=== PATIENT | male | born 1950 | race Caucasian/White ===

== ENCOUNTER 2025-01-17 11:06 | Emergency (ER) | payer OTHER, SELFPAY ==
[2025-01-17 11:07] VITALS: BMI 21.7
[2025-01-17 11:09] VITALS: BP 158/82
--- NOTE | 2025-01-17 11:18 | CON.NEURO4 ---
Addendum entered and electronically signed by Pk Vigil MD 01/17/25 21:07:
According to the patient's and son, the patient had returned to his baseline while he was in the ER.
I had a detailed discussion with the patient's and son regarding the assessment and the management plan, and they verbalized understanding of our discussion. The patient will follow-up with his neurologist as an outpatient.
Addendum entered and electronically signed by Pk Vigil MD 01/17/25 21:03:
The patient was seen and examined today along with the nurse practitioner Collette Bush. I generally agree with the assessment and the management plan of the nurse practitioner Collette Bush. Given below is my addendum.
The patient is a 74 years old male with history of Lewy body dementia. Who presented to the emergency department for concern for stroke-like symptoms. The patient was accompanied by his and son who were present at the bedside to provide the
history. According to his the patient went to sleep at around 10 PM last night and she went to wake him up this morning at around 10:15 AM, and she noticed that the patient was not able to speak. On arrival in the ED, the patient's speech
gradually improved and he became more alert. Also in the ER the patient started to move his upper and lower extremities and was found to have antigravity strength in his extremities. He started to follow verbal commands and also was able to tell
his name and his age. His speech was slightly dysarthric and the sensations were grossly intact. There was no limb ataxia seen. The patient appear has rigidity in his extremities. The patient is being followed by an outside neurologist for Lewy
body dementia.
The patient had a significant improvement in his mental status in the ER and according to his and son, the patient's mental status had improved back to his baseline. The patient does not appear to have had a stroke. The etiology of the
patient's clinical presentation could be related to toxic metabolic encephalopathy. He was found to have UTI and he was started on antibiotic.
Discussed with the ER physician Dr. Arti Hoyt.
Original Note:
Consultation - Neurology 4
-
CONSULTING PHYSICIAN: Pk Vigil MD
REFERRING PHYSICIAN: ER/Dr. Hoyt
DICTATED BY: JV Domínguez
DATE/TIME OF REQUEST: 01/17/25
DATE/TIME OF CONSULTATION: 01/17/25
Reason for Consultation: Stroke Alert
History of Present Illness:
This is a 74-year-old male who has presented to the hospital with report of aphasia. Patient was previously followed by our outpatient Neurology service for memory issues, hallucinations, and dizziness. He was subsequently diagnosed with Lewey body
dementia with parkinsonism by the [facility] about three years ago and currently follows with them as an outpatient.
From previous outpatient encounter by Dr. Hodge on 02/24/2022:
'This is a 70 years old gentleman with history of hypertension and hyperlipidemia presented with dizziness for evaluation. Patient was accompanied with his at today's visit and she helped his recollection.�������Patient reported that He had a
dizziness event a couple times over the past few weeks. It happened one time when he bended over his body with housework. It was assoicated with left sided numbness but resolved after he went to ER. He also had CT head and it did not show acute
intracranial abnormalities. He reported that he felt severe dizziness and almost passed out. He was DC home after sympotms impoved.�������Patient had another event when he was anxious in stress. He reported lightheaded and symptoms improved after
drinking water and rest. He denies dizziness event is associated with numbness or weakness of his body. He denies difficulty with vision or speech during the events. He reported worsening of anxiety recently. He has been taking fluoxetine 10 mg once
daily from primary physician.�������Since last visit, pt completed work up for syncope and dizziness with Brain MRI and US ICA in 01/2021. TSH was also check in 01/2021 and unremarkable. He reported that no event of syncope recently and dizziness
also resolved.�������
>> Right-Handed�������Began (prior to this first evaluation):�������
10/2021������
�4 years ago (2017) patient began to have violent sleep, stopped since 2019������
�3 ED visits since last evaluation in this office�������
2 episodes were dizziness������
October 19, 2021 1 episode of psychosis leading to Crisis evaluation�������
Another episode of visual hallucination�������
No problems with memory noted�������
Anxiety and driving around the block.'
Patient's spouse at bedside reports that yesterday they flew home from a trip to [place] and stayed up later than usual. They went to bed at 2230 and the patient was at his baseline at that point. This morning (01/17/25), she reports that
she saw him open his eyes around 0830, but he kept going back to sleep. Around 1015 she decided he needed to get up for the day and when she tried to wake him up she noted that he was not speaking at all. EMS felt that the right side of his face was
also droopy. CT head and CTA head/neck were obtained on arrival and are negative for any acute abnormalities. Upon returning from CT scan, patient is now speaking and moving all extremities at baseline. NIHSS is 1 for inability to state the month.
He is not a candidate for TNK/IAT due to low NIHSS, low concern for stroke. Patient's reports that he is not on any parkinson's disease medications due to minimal relief of symptoms with treatment.
Past Medical History: Lewey body dementia with parkinsonism, HTN, HLD, CKD, urinary incontinence
Surgical History: Denies.
Family History: Reviewed and noncontributory.
Social History: Denies tobacco, alcohol, and illicit drug use.
Allergies: No known allergies.
Home Medications: See below.
Review of Symptoms:
Per the HPI. I am unable to obtain a complete review of systems�because of patient's inability to provide history.
Physical Exam:
The patient is afebrile, abdomen is nondistended, breathing is unlabored, skin is warm and dry, no edema.
NIH Stroke Scale:
I performed the NIH stroke scale on the patient on 01/17/25 at 1130. The patient scored 1 points on the NIH stroke scale assessment, which were assigned as follows: See below.
Neurologic Examination:
The patient is awake, alert and oriented to name, age, place, not time. He is able to follow commands and answer questions appropriately. There is no aphasia or dysarthria. On cranial nerve assessment, pupils are 3 mm bilateral, round and reactive
to light and accommodation. Visual thomas are full. Extraocular movements are intact. There is no facial asymmetry. Hearing is intact bilaterally to normal conversation volume. Tongue palate and uvula are midline. Sternocleidomastoid strengths are
full bilaterally. Motor strengths are 5/5 bilateral upper and lower extremities on medical research [place] scale. There is no drift. There is a medium amplitude semi rhythmic tremor in distal RUE at rest. Babinski is absent bilaterally. There was
no extinction noted on double simultaneous stimulation. Coordination is intact by finger to nose bilaterally.
Lab Results: See below.
Neuro Imaging:
1. CT Head 01/17/25: No acute intracranial abnormality appreciated. Mild atrophy and small vessel ischemic change, without significant change compared to prior study dated 11/29/2020. ASPECT score: 10/10.
2. CTA head/neck 01/17/25: No evidence of large vessel occlusion, or arterial dissection. Small subcentimeter left thyroid nodules, likely benign given their small size.
Differentials for the patient's presentation include:
1. Transient aphasia; etiology likely exacerbation of parkinsonism/dementia symptoms in the setting of toxic metabolic encephalopathy, possibly due to excessive fatigue.
2. Very low concern for TIA or stroke.
Patient has the following risk factors for their symptoms: Dementia, parkinsonism, poor sleep
IV Tenecteplase/IAT candidacy: He is not a candidate for TNK/IAT due to low NIHSS, low concern for stroke.
Recommendations:
-Do not see a role for further stroke workup/antiplatelet therapy at this time.
-Infectious/metabolic workup per primary team.
-Follow-up with outpatient Neurologist.
Discussed patient care with: Dr. Vigil, the patient, patient's family
Vital Signs and Labs
-
Vital Signs and Labs:
Vital Signs
Pulse Resp BP Pulse Ox
68 18 149/79 97
01/17/25 11:19 01/17/25 11:19 01/17/25 11:19 01/17/25 12:29
Lab Results
01/17/25 11:13
01/17/25 11:13
PT 14.4 Sec (11.4-14.6) 01/17/25 11:13
INR 1.07 01/17/25 11:13
APTT 31.0 Sec (23.4-35.0) 01/17/25 11:13
Sodium 138 mmol/L (135-145) 01/17/25 11:13
Potassium 4.4 mmol/L (3.5-5.1) 01/17/25 11:13
BUN 24 mg/dl (9-20) H 01/17/25 11:13
Glucose 88 mg/dl (70-99) 01/17/25 11:13
Calcium 9.6 mg/dl (8.4-10.2) 01/17/25 11:13
Medications
-
Home Medications
�Medication �Instructions �Recorded
meclizine 25 mg tablet 25 mg PO TID PRN dizzy #9 tabs 05/29/21
NIH Stroke Score
Subsequent NIH Scale
Date of Subsequent NIH Scale: 01/17/25
Time of Subsequent NIH Scale: 11:30
NIH Stroke Score
Level of Consciousness: 0 - Alert
LOC Questions: 1-Answers one correctly
LOC Commands: 0-Performs both correctly
Best Horizontal Gaze: 0-Normal
Visual Thomas: 0=Normal, no visual loss
Facial Palsy: 0=Normal, symmetrical
Motor - Right Arm: 0=No drift 10 seconds
Motor - Left Arm: 0=No drift 10 seconds
Motor - Right Le-No drift 5 seconds
Motor - Left Le-No drift 5 seconds
Limb Ataxia: 0-Absent
Sensation: 0-Normal
Best Language: 0-No aphasia
Dysarthria: 0-Normal
Extinction and Inattention: 0-No abnormality
NIH Total Score:: 1
Modified Vigo (mRS) Score
Modified [place]igo Scale (mRS): No symptoms
Score: 0
Alteplase Contraindication
Inclusion and Exclusion criteria reviewed: Yes
[2025-01-17 11:19] VITALS: BP 149/79
[2025-01-17 11:22] LABS: Hematocrit 42.1 % (39.0-52.0); Hemoglobin 13.9 g/dL (13.0-18.0); Mean Corp Hgb Conc. 33.0 g/dL (33.0-37.0); Mean Corpuscular Volume 90.0 fL (80.0-94.0); Nucleated Red Blood Cells % 0 % (-); Platelet Count 204 10^3/uL (130-400); Red Cell Dist. Width 14.1 % (11.5-14.5)
[2025-01-17 11:33] LABS: INR 1.07; PT 14.4 Sec (11.4-14.6)
[2025-01-17 11:34] LABS: APTT 31.0 Sec (23.4-35.0)
[2025-01-17 11:39] LABS: ALT (SGPT) 27 U/L (0-50); AST (SGOT) 23 U/L (17-59); Albumin 4.2 g/dl (3.5-5.0); Alkaline Phosphatase 111 U/L (38-126); Blood Urea Nitrogen 24 mg/dl (9-20); Calcium 9.6 mg/dl (8.4-10.2); Carbon Dioxide 22 mmol/L (22-30); Chloride 107 mmol/L (98-107); Estimated Creatinine Clearance 36 ml/min; Glucose 88 mg/dl (70-99); Potassium 4.4 mmol/L (3.5-5.1); Sodium 138 mmol/L (135-145); Total Protein 7.6 g/dl (6.3-8.2); eGFR 41.26
[2025-01-17 11:45] LABS: Troponin I < 0.012 ng/ml
--- NOTE | 2025-01-17 12:22 | ED.CVA ---
History of Present Illness
General
Chief Complaint: CVA/TIA Symptoms
Time Seen by Provider: 01/17/25 11:09
Onset of Stroke Symptoms
Onset of symptoms known: No
Time pt last seen normal is known: Yes
Date last time pt seen normal: 01/16/25
History of Present Illness
History of Present Illness:
74-year-old male with history of Lewy body dementia and Parkinson's disease presenting to the emergency department for concern of strokelike symptoms. Patient arrives by EMS. Patient was allegedly last seen normal last evening before bedtime.
went to go wake him up this morning around 1015 and at that time noticed that he was not speaking and seemed off. She subsequently called the medics. On medics arrival, they were that he had a right facial droop, again not speaking. No known
history of stroke. On arrival to the hospital, patient limited historian. Able only to say his name. not immediately available for questioning with no additional history obtained at this time.
Past History
Past History
ED Past Medical History: HTN and Hypercholesterolemia
ED Past Surgical History: None
Social History
Tobacco: Non-smoker
Alcohol: None
Drug: None
Phy Exam
Physical Exam
Physical Exam:
General: no clinical signs of dehydration, nontoxic and in no acute distress
HEENT: protecting airway
Neck: appears supple
CV: Normal heart rate, regular rhythm
Resp: No accessory muscle use, no increased work of breathing, lungs clear to auscultation bilaterally
Abd: Soft and non-distended, no tenderness to palpation
Extremities: No deformities, no swelling, no erythema.
Neuro: alert, able to only say name. Able to follow simple commands, symmetrical strength to bilateral upper extremities. Global weakness to lower extremities. No obvious facial drooping
: deferred
Rectal: deferred
Psych: Normal affect
Skin: Intact
Scores
NIH Stroke Score
Level of Consciousness: 0 - Alert
LOC Questions: 2-Neither correct
LOC Commands: 1-Performs one correctly
Best Horizontal Gaze: 0-Normal
Visual Thomas: 0=Normal, no visual loss
Facial Palsy: 0=Normal, symmetrical
Motor - Right Arm: 2=Partial vs. gravity
Motor - Left Arm: 2=Partial vs. gravity
Motor - Right Le-None vs. gravity
Motor - Left Le-None vs. gravity
Limb Ataxia: 0-Absent
Sensation: 0-Normal
Best Language: 2-Severe aphasia
Dysarthria: 0-Normal
Extinction and Inattention: 0-No abnormality
NIH Total Score:: 15
Course
Orders/Labs/Results
Orders:
Orders
01/17/25 11:09
CT HEAD STROKE ALERT W/o Cont Urgent
Comment:
Reason For Exam: aphasia
CT HEAD/NECK ANG STROKE ALERT Urgent
Comment:
Reason For Exam: aphasia
01/17/25 11:13
Complete Blood Count/With Diff Urgent
Comprehensive Metabolic Panel Urgent
PTT Urgent
Prothrombin Time Urgent
Troponin I Urgent
01/17/25 12:44
Electrocardiogram (*1) Urgent
Reason for Study: Other
Other Reason for Exam: stroke workup
EKG- Treatment ONCE
01/17/25 12:51
Urinalysis Reflex To Culture Urgent
Date Specimen was Collected: 01/17/25
Time Specimen was Collected: 12:51
Urine Microscopic Reflex Cult Urgent
Urine Culture Urgent
SIXTO Source: U
Specimen Description:
Date Specimen was Collected: 01/17/25
Time Specimen was Collected: 12:51
01/17/25 13:37
Cephalexin Monohydrate [Keflex] 500 mg PO NOW STA
Abnormal Lab Results
01/17/25 01/17/25
11:13 12:51
RBC 4.68 L 10^6/uL
(4.70-6.10)
Absolute Lymphs (auto) 1.1 L 10^3/uL
(1.2-3.4)
Neutrophils % 77.1 H %
(42.2-75.2)
Lymphocytes % 15.2 L %
(20.5-51.1)
BUN 24 H mg/dl
(9-20)
Creatinine 1.7 H mg/dL
(0.7-1.3)
Total Bilirubin 1.5 H mg/dl
(0.2-1.3)
Urine Ketones 2+ A
(Negative)
Ur Occult Blood Reflex 4+ A
(Negative)
Leukocyte Esterase Rfl 3+ A
(Negative)
Urine RBC 3-6 A /HPF
(0-2)
Urine WBC (Reflex) 50-60 A /HPF
(0-5)
Urine Bacteria (Reflex) Many A
(Negative)
Urine Glucose 4+ A
(Negative)
Urine Albumin (Reflex) 2+ A
(Neg - Trace)
01/17/25 11:13
01/17/25 11:13
Vital Signs
Initial and Last Documented VS:
Initial Vital Signs
Pulse Resp BP Pulse Ox
69 18 158/82 98
01/17/25 11:09 01/17/25 11:09 01/17/25 11:09 01/17/25 11:09
Last Documented Vital Signs
Pulse Resp BP Pulse Ox
68 18 149/79 97
01/17/25 11:19 01/17/25 11:19 01/17/25 11:19 01/17/25 12:29
MDM/Problems Addressed
MDM/Problems Addressed:
74-year-old male with history of Lewy body dementia and Parkinson's presenting for strokelike symptoms. Vital signs on arrival are significant for mild hypertension.
On patient's arrival, minimal speech which is allegedly change from his baseline. For this reason patient was made a stroke alert. However, last seen normal was last evening, without current indication for TNK. Patient sent for CT head and CT
perfusion study. Neurology soon at bedside. Upon return from CT, did arrive and notes that patient was normal last evening. They flew home from [place], so patient did have a longer day than usual. However went to bed without issue.
When she went to check on him this morning, had difficulty waking up. She let him sleep and then when she went back again, noticed that he was not speaking which prompted her to call the ambulance. She notes that he has never had any behavior like
this in the past. No report of any fall or trauma. No report of any recent fever. However, once patient returned from CT scan, noted to be speaking and moving all extremities equally. He is currently now at his baseline per family.
12:45 - CT and CT angio negative. Patient again at baseline. Per neurology, without present concern for CVA. Suspected that symptoms could be more likely secondary to known Lewy body dementia, which notes has been on the decline, as well as
Parkinson's, which she is not currently on any medications for. Recommending to look for any metabolic source of symptoms. However at this time labs are unremarkable, baseline kidney dysfunction. Will send urinalysis, known to be incontinent at
baseline. Will also ambulate to ensure that he is steady
13:30 - Urine does show elements of infection, straight cath sample. Patient ambulated without difficulty, remains at baseline per his family. Suspect that patient's travel day yesterday in addition to UTI may have contributed to patient's
symptoms. However at this time, remains hemodynamically stable. Ultimately feel that he is stable for discharge. Will start patient on cephalexin with urine culture sent. also notes some discharge from the eyes, greenish in color. Will
provide prescription for erythromycin ointment. Return precautions discussed and patient verbalized under
*Pulse Oximetry
SaO2: 97
Oxygen Mode of Delivery: Room air
Patient hypoxic: no
*Critical Care Note
Total Time (30-74mins, 75-104mins- exclusive of procedures): Not Applicable
ED Attending Note
-
Portions of this chart may have been created with voice recognition software.� Occasional wrong word or��sound alike� substitutions may have occurred due to the inherent limitations of voice recognition software.
Discharge Plan
Departure
Prescriptions:
No Action
meclizine 25 MG tablet
25 mg PO TID PRN (Reason: dizzy) Qty: 9 0RF
Referrals:
John Tamayo I., DO [Family Provider, Internal Medicine]
Interventions
Interventions:
*Risk Screen - Suicide Last Done: 01/17/25 11:37
*General Assessment Last Done: 01/17/25 11:36
*Neglect/Abuse Screening Last Done: 01/17/25 11:37
*ED- Fall Risk Assessment Last Done: 01/17/25 13:28
*ED COVID-19 Vaccine History Last Done: 01/17/25 13:28
*ED Influenza Vaccine History Last Done: 01/17/25 13:28
ED- Pulmonary Assessment Last Done: 01/17/25 11:37
ED- Neurological Assessment Last Done: 01/17/25 11:34
ED- Cardiac Assessment Last Done: 01/17/25 11:30
ED Swallowing Screen Last Done: 01/17/25 13:26
Discharge Date and Time
Print Language: AZERI
[2025-01-17 13:13] LABS: Urine Character Slightly Cloudy (Clear)
[2025-01-17 13:25] LABS: Urine Squamous Cell 0-2 /LPF (Few); Urine White Cell 50-60 /HPF (0-5)
[2025-01-17] MEDS: KEFLEX 500 MG PO (13:49)
[2025-01-17 13:56] VITALS: BP 138/75
== END 2025-01-17 14:13 | disposition home or self-care (01) ==
LOC: EMR 11:06
PROVIDERS: EMERGENCY PHYSICIAN Student in an Organized Health Care Education/Training Program; FAMILY PHYSICIAN Internal Medicine
DX: R41.82 Altered mental status, unspecified (principal); N39.0 Urinary tract infection, site not specified; G31.83 Neurocognitive disorder with Lewy bodies; F02.84 Dementia in other diseases classified elsewhere, unspecified severity, with anxiety; G20.C Parkinsonism, unspecified; I12.9 Hypertensive chronic kidney disease with stage 1 through stage 4 chronic kidney disease, or unspecified chronic kidney disease; N18.9 Chronic kidney disease, unspecified; Z79.899 Other long term (current) drug therapy
CPT/HCPCS: 99285; 70450; 70496; 70498; 80053; 81003; 81015; 84484; 85025; 85610; 85730; 87077; 87086; Q9967